=== PATIENT | male | born 1985 | race Caucasian/White ===

== ENCOUNTER 2023-05-18 22:59 | Emergency (ER) | payer OTHER, SELFPAY ==
[2023-05-18 23:05] VITALS: BP 123/79; PULSE 107; RESP 18; TEMP 36.4; O2SAT 100
== END 2023-05-19 06:15 | disposition left against medical advice (07) ==
LOC: ANHED 05-19 06:14
DX: T40.1X1A Poisoning by heroin, accidental (unintentional), initial encounter (principal)
CPT/HCPCS: 99199